=== PATIENT | female | born 1945 | race Two or more races ===

== ENCOUNTER 2016-07-14 10:18 | Day surgery (SDC) | payer MEDICARE, BC, OTHER ==
[2016-07-11 12:48] LABS: HEMATOCRIT 40.6 % (36.0-48.0); HEMOGLOBIN 13.7 g/dL (12.0-16.0)
[2016-07-11 12:52] LABS: BUN (BLOOD UREA NITROGEN) 14 MG/DL (6-23); CALCIUM, SERUM 9.4 MG/DL (8.5-10.4); CHLORIDE, SERUM 103 MMOL/L (96-112); CO2 (CARBON DIOXIDE) 28 MMOL/L (24-34); CREATININE 0.96 MG/DL (0.55-1.02); GFR AFRICAN AMERICAN 68 ML/MIN (>=60); GFR NON AFRICAN AMERICAN 59 ML/MIN (>=60); GLUCOSE, SERUM 106 MG/DL (60-99); POTASSIUM, SERUM 4.3 MMOL/L (3.5-5.3); SODIUM, SERUM 140 MMOL/L (135-148)
--- NOTE | ~2016-07-14 | OP ---
Record Of Operation [facility] [address] [place]. [address] NAME: MARVEL SHINE : 41 STATUS : [facility]#: [id number] AGE: 71 ADM/REG DATE : 07/14/16 MR#: [id number] REPORT SERV DATE: 07/14/16 DICTATED BY: ALYSSA INIGUEZ DATE: 07/14/16 REPORT STATUS : Draft TRANSCRIBED BY: MODL DATE: 07/14/16 DATE OF PROCEDURE: 07/14/2016 PREOPERATIVE DIAGNOSES: 1. Bilateral chronic otitis media. 2. Bilateral cervical lymphadenopathy. POSTOPERATIVE DIAGNOSES: 1. Bilateral chronic otitis media. 2. Bilateral cervical lymphadenopathy. PROCEDURE: 1. Bilateral myringotomy with placement of Faustino type T-tube. 2. Left deep cervical lymph node biopsy. SURGEON: Alyssa Iniguez M.D. ANESTHESIA: General. COMPLICATIONS: None. COUNTS: All counts correct following the procedure. ESTIMATED BLOOD LOSS: 5 mL. PREOPERATIVE INFORMED CONSENT: We discussed the risks and benefits of the surgery, but not limited to bleeding, infection, possible hearing loss, possible cranial nerve injury resulting in temporary or permanent deficits and consent is on chart. PROCEDURE IN DETAIL: The patient was brought to the operative suite and placed on the operating table in supine position. General endotracheal anesthesia was initiated without incident. The right ear was addressed first, the old ventilation tube was carefully removed from the surface of the pars tensor using Jones needle and Alligator forceps. The left ear was also cleaned of a copious amount of dried blood in the ear canal and then again this tube was noted to be extruded in line on the surface of the pars tensa, it was removed using Jones needle and Alligator forceps. The patient's head and neck were cleaned, prepped, and draped in the usual sterile fashion. The right ear was then addressed under the microscope. All cerumen and debris were removed from the external auditory canal to visualize the tympanic membrane. Following this, a myringotomy knife was used to make an incision in the anteroinferior aspect of the tympanic membrane. A Faustino type T-tube was placed through the myringotomy site using alligator forceps then manipulated into position using a blunt 45-pick. Following placement, the area was suctioned clean and placement was confirmed. Floxin Otic Drops were placed in the external auditory canal. Record Of Operation [facility] [address] [place]. [address] NAME: MARVEL SHINE : 41 STATUS : [facility]#: [id number] AGE: 71 ADM/REG DATE : 07/14/16 MR#: [id number] REPORT SERV DATE: 07/14/16 DICTATED BY: ALYSSA INIGUEZ DATE: 07/14/16 REPORT STATUS : Draft TRANSCRIBED BY: AILEEN DATE: 07/14/16 Attention was directed to the left ear. In similar fashion as described for the right ear, all cerumen was removed from the external auditory canal to visualize the tympanic membrane. A myringotomy with placement of ventilation tube was performed in similar fashion as described on the right. Following placement of the tube the area was suctioned clean and placement was confirmed. Floxin Otic Drops were placed in the external auditory canal. The patient was awakened from anesthesia and taken to recovery in stable condition. The left neck was then cleaned and prepped in usual sterile fashion. Following this, the incision was marked out over the lymph node in question at level 2 in the left side of the neck and injected with 5 mL of 1% lidocaine and 1:100,000 epinephrine for hemostasis. Following this, a 15 blade scalpel was used to make an incision down the underlying subcutaneous tissues. Then using sharp dissection using a Metzenbaum scissors and then cautery, dissection was carried out down to the lesions in question, there was multiple inflammatory lymph nodes with dense inflammatory tissue surrounding the lymph nodes. These were carefully removed from the surrounding tissues, dividing the feeding vessels using bipolar cautery, as well as several vessels had to be double clamped with hemostats and tied off using 2-0 silk ligatures. There were several lymph nodes in the left tail of the parotid as well as another solitary lymph node in level 2 in the jugular chain, these were removed en bloc and sent fresh for frozen section and lymphoma workup, as well as tissue culture. The wound was copiously irrigated sterile saline. The wound was closed in layers using 3-0 Vicryl, and 5-0 plain gut suture, followed by benzoin, Steri-Strips, Telfa, and Tegaderm dressing. The patient was awakened from anesthesia and taken to recovery room in stable condition. SUNNY/AILEEN Alyssa Iniguez M.D. / [id number] CC: Alyssa Iniguez M.D.
[~2016-07-14 10:18] MED LIST: ADVAIR230P INH; ASAB PO; BYSTOLIC5 MG PO; CARDU2 PO; CARDURA XL4 MG PO; CAT1 PO; CO Q-10200 MG PO; COZAAR100 MG PO; GLUCOSAMINE PO; LEVALBUTEROL INH; LOSARTAN PO; NORV10 PO; NORV5 PO; OSTEO BIOFLEX PO; PEP20 PO; PRILOSEC40 MG PO; PRIN20 PO; PROZ10 PO; PROZAC PO; QVAR 80 MCG80 MCG INH; RED YEAS1 OR; SINGULAIR1 PO; SYN.05 PO; V5 PO; VESICARE5 PO; X5 PO; XALAT OPH; XOPEN0.5ML INH; XOPENEX HFA INH; ZETIA PO; [UNRECOGNIZED DRUG - REMARK]
== END 2016-07-14 16:49 | disposition home or self-care (01) ==
LOC: SDC 10:18
PROVIDERS: Otolaryngology
PROC: 099500Z Drainage of Right Middle Ear with Drainage Device, Open Approach (ICD-10-PCS; 2016-07-14)
PROC: 07B20ZX Excision of Left Neck Lymphatic, Open Approach, Diagnostic (ICD-10-PCS; 2016-07-14)
PROC: 099600Z Drainage of Left Middle Ear with Drainage Device, Open Approach (ICD-10-PCS; principal; 2016-07-14 12:15)
DX: L04.0 Acute lymphadenitis of face, head and neck (principal); H66.93 Otitis media, unspecified, bilateral; I10 Essential (primary) hypertension; E03.9 Hypothyroidism, unspecified; J45.909 Unspecified asthma, uncomplicated; G47.33 Obstructive sleep apnea (adult) (pediatric); M06.9 Rheumatoid arthritis, unspecified; K21.9 Gastro-esophageal reflux disease without esophagitis; F41.9 Anxiety disorder, unspecified; F32.9 Major depressive disorder, single episode, unspecified; Z86.73 Personal history of transient ischemic attack (TIA), and cerebral infarction without residual deficits; Z98.890 Other specified postprocedural states; Z82.5 Family history of asthma and other chronic lower respiratory diseases; Z99.89 Dependence on other enabling machines and devices; Z88.5 Allergy status to narcotic agent; Z88.8 Allergy status to other drugs, medicaments and biological substances; Z91.048 Other nonmedicinal substance allergy status; Z79.82 Long term (current) use of aspirin; Z79.51 Long term (current) use of inhaled steroids; Z79.899 Other long term (current) drug therapy
CPT/HCPCS: 80048; 85014; 85018; 87015; 87070; 87075; 87102; 87116; 87205; 88184; 88185; 88307; 88312; 88313; 88333; 93005; A9270-GY; J0690; J2405; J2710; J3010